=== PATIENT | female | born 1935 | race Caucasian/White ===

== ENCOUNTER 2018-10-15 13:07 | Outpatient (CLI) | payer MEDICARE, BC | END 2018-10-15 13:08 | disposition home or self-care (01) | LOC: BICMAMMO 13:07 | PROVIDERS: ATTEND Internal Medicine | DX: Z12.31 Encounter for screening mammogram for malignant neoplasm of breast (principal) | CPT/HCPCS: 77063; 77067 ==

== ENCOUNTER 2020-04-13 14:43 | Outpatient (CLI) | payer MEDICARE, BC ==
--- NOTE | 2020-04-13 15:02 | RAD ---
RADIOGRAPH CHEST 2 VIEWS: DATE: 04/13/2020 HISTORY: 84-year-old female with essential primary hypertension presents with cough. COMPARISON: 03/25/2014 FINDINGS: There is no airspace density, pulmonary edema, pleural effusion, pneumothorax, or cardiomegaly. There are several calcified pulmonary granulomata in the left upper lobe. There has been no significant interval change. IMPRESSION: No active cardiopulmonary disease.
== END 2020-04-13 14:44 | disposition home or self-care (01) ==
LOC: BICRAD 14:43
PROVIDERS: ATTEND Internal Medicine
DX: R05 Cough (principal); I10 Essential (primary) hypertension
CPT/HCPCS: 71046

== ENCOUNTER 2021-05-12 09:17 | Outpatient (CLI) | payer MEDICARE | END 2021-05-12 09:18 | disposition home or self-care (01) | LOC: BICMAMMO 09:17 | PROVIDERS: ATTEND Internal Medicine | DX: N63.0 Unspecified lump in unspecified breast (principal); M80.00XA Age-related osteoporosis with current pathological fracture, unspecified site, initial encounter for fracture | CPT/HCPCS: 77066; 77080; G0279 ==

== ENCOUNTER 2021-05-12 10:35 | Outpatient (CLI) | payer MEDICARE ==
[~2021-05-12 10:35] MED LIST: Iopamidol-370 76% 500 ML 1 ML ONE
[2021-05-12 10:50] LABS: Estimated GFR-MDRD - POC Greater than 90
== END 2021-05-12 10:36 | disposition home or self-care (01) ==
LOC: BICCT 10:35
PROVIDERS: ATTEND Internal Medicine
DX: M79.89 Other specified soft tissue disorders (principal); N63.0 Unspecified lump in unspecified breast
CPT/HCPCS: 71260; 82565

== ENCOUNTER 2021-05-19 13:26 | Outpatient (CLI) | payer MEDICARE | END 2021-05-19 13:27 | disposition home or self-care (01) | LOC: ULT 13:26 | PROVIDERS: ATTEND Internal Medicine | DX: I87.1 Compression of vein (principal) ==

== ENCOUNTER 2021-10-16 12:09 | Emergency (ER) | payer MEDICARE ==
[2021-10-16] MEDS ORDERED: HYDROcodone/Acetaminophen 5/325 mg Tablet ONE (13:26)
[2021-10-16] MEDS ORDERED: Diazepam 5 MG TAB ONE (15:12)
== END 2021-10-16 17:00 | disposition home or self-care (01) ==
LOC: ERS 12:09
DX: S32.502A Unspecified fracture of left pubis, initial encounter for closed fracture (principal); S32.10XA Unspecified fracture of sacrum, initial encounter for closed fracture; I10 Essential (primary) hypertension; K21.9 Gastro-esophageal reflux disease without esophagitis; Z79.899 Other long term (current) drug therapy; W18.30XA Fall on same level, unspecified, initial encounter
CPT/HCPCS: 72192

== ENCOUNTER 2021-10-20 12:28 | Inpatient (IN) | payer MEDICARE ==
[2021-10-20 15:42] LABS: #Eosinphils 0.1 thou/uL (0.0-0.7); #Lymphocytes 1.5 thou/uL (1.20-3.40); #Monocytes 0.9 thou/uL (0.11-0.59); #Neutrophils 6.4 thou/uL (1.40-6.50); %Basophils 0.4 % (0.0-1.0); %Lymphocytes 16.4 % (21.0-51.0); %Neutrophils 72.2 % (42.0-75.0); Hemoglobin 14.6 g/dL (12.0-16.0); Mean Corpuscular HGB CONC 32.3 g/dL (32.0-36.0); Mean Corpuscular Hemoglobin 29.7 pg (27.0-31.0); Mean Corpuscular Volume 91.9 fL (78.0-98.0); Platelet Count 500 thou/uL (130-400); RBC Distribution Width 12.7 % (11.5-14.5); Red Blood Cell (RBC) Count 4.92 mill/uL (4.20-5.40); White Blood Cell (WBC) Count 8.9 thou/uL (4.8-10.8)
[2021-10-20 16:04] LABS: ALT (SGPT) 14 U/L (8-55); AST (SGOT) 21 U/L (5-34); Albumin 3.8 g/dL (3.4-4.8); Alkaline Phosphatase 140 U/L (40-110); Anion Gap 15 mmol/L (10-20); BUN (Urea Nitrogen) 10 mg/dL (9.8-20.1); Bilirubin, Total 0.7 mg/dL (0.2-1.2); Calc. Creatinine Clearance 0 mL/min (70-130); Carbon Dioxide 29 mmol/L (23-31); Chloride 89 mmol/L (98-107); Globulin 2.9 g/dL (2.4-3.5); Glucose 98 mg/dL (83-110); Potassium 4.6 mmol/L (3.5-5.1); Protein, Total 6.7 g/dL (5.8-8.1); Sodium 128 mmol/L (136-145)
[2021-10-20] MEDS ORDERED: Ondansetron PF 4 MG/2 ML Vial IVP PRN (16:09)
[2021-10-20] MEDS ORDERED: Bisacodyl 10 MG SUPP PR PRN (16:09)
[2021-10-20] MEDS ORDERED: Guaifenesin DM 100-10/5 ML UDCUP PO PRN (16:09)
[2021-10-20] MEDS ORDERED: Calcium Carbonate 500 MG ChewTAB PO PRN (16:09)
[2021-10-20] MEDS ORDERED: Morphine 4 MG/ML VIAL ONE (16:10)
[2021-10-20] MEDS ORDERED: Ondansetron PF 4 MG/2 ML Vial ONE (16:10)
[2021-10-20] MEDS ORDERED: Morphine 4 MG/ML VIAL SLOW IVP PRN (17:48)
[2021-10-20 18:16] VITALS: BMI 22.7
[2021-10-20] MEDS: Metoprolol Tartrate 25 MG TAB PO SCH (19:55)
[2021-10-20] MEDS: Senokot S 8.6-50 MG TAB PO SCH (19:55)
[2021-10-20] MEDS: traMADol HCl 50 MG TAB PO SCH (19:56)
[2021-10-20] MEDS: Lidocaine 5% Patch TD SCH (20:00)
[2021-10-21 05:20] LABS: #Basophils 0.1 thou/uL (0.0-0.2); #Eosinphils 0.1 thou/uL (0.0-0.7); #Lymphocytes 1.2 thou/uL (1.20-3.40); #Monocytes 0.8 thou/uL (0.11-0.59); #Neutrophils 5.7 thou/uL (1.40-6.50); %Basophils 0.8 % (0.0-1.0); %Eosinophils 1.5 % (0.0-10.0); %Lymphocytes 15.4 % (21.0-51.0); %Monocytes 10.2 % (0.0-10.0); %Neutrophils 72.1 % (42.0-75.0); Mean Corpuscular HGB CONC 32.5 g/dL (32.0-36.0); Mean Corpuscular Hemoglobin 29.7 pg (27.0-31.0); Mean Corpuscular Volume 91.5 fL (78.0-98.0); Mean Platelet Volume 5.9 fL (7.4-10.4); Platelet Count 485 thou/uL (130-400); RBC Distribution Width 12.7 % (11.5-14.5); Red Blood Cell (RBC) Count 5.04 mill/uL (4.20-5.40)
[2021-10-21 05:40] LABS: Anion Gap 12 mmol/L (10-20); BUN (Urea Nitrogen) 9 mg/dL (9.8-20.1); Calc. Creatinine Clearance 72 mL/min (70-130); Calcium 9.7 mg/dL (7.8-10.44); Carbon Dioxide 30 mmol/L (23-31); Chloride 90 mmol/L (98-107); Glucose 96 mg/dL (83-110); Potassium 3.7 mmol/L (3.5-5.1); Sodium 128 mmol/L (136-145)
[2021-10-21] MEDS: HYDROcodone/Acetaminophen 5/325 mg Tablet PO PRN ×2 (05:56→13:00)
[2021-10-21] MEDS ORDERED: hydrALAZINE 20 MG/ML VIAL SLOW IVP PRN (06:36)
[2021-10-21] MEDS ORDERED: Sodium Chloride 0.9% 1,000 ML IV SCH (07:00)
[2021-10-21] MEDS ORDERED: Amlodipine 5 MG TAB PO SCH (09:00)
[2021-10-21] MEDS: Acetaminophen 325 MG TAB PO PRN ×2 (09:10→20:29)
[2021-10-21] MEDS: Senokot S 8.6-50 MG TAB PO SCH ×2 (09:12→20:35)
[2021-10-21] MEDS: traMADol HCl 50 MG TAB PO SCH ×3 (09:13→20:25)
[2021-10-21] MEDS: Metoprolol Tartrate 25 MG TAB PO SCH ×2 (09:13→20:27)
[2021-10-21 11:13] LABS: SARS-CoV-2 PCR by NAA Not Detected (NotDetected)
[2021-10-21] MEDS: Enoxaparin Sodium 40 MG/0.4 ML SYRINGE SC SCH (13:01)
[2021-10-21] MEDS: Transdermal Patch Removal TOP SCH (20:35)
[2021-10-22 08:03] LABS: #Eosinphils 0.1 thou/uL (0.0-0.7); #Monocytes 0.6 thou/uL (0.11-0.59); #Neutrophils 5.5 thou/uL (1.40-6.50); %Basophils 0.6 % (0.0-1.0); %Eosinophils 1.4 % (0.0-10.0); %Lymphocytes 14.2 % (21.0-51.0); %Monocytes 8.1 % (0.0-10.0); %Neutrophils 75.8 % (42.0-75.0); Hemoglobin 15.6 g/dL (12.0-16.0); Mean Corpuscular Hemoglobin 29.3 pg (27.0-31.0); Mean Corpuscular Volume 91.8 fL (78.0-98.0); Mean Platelet Volume 6.7 fL (7.4-10.4); Platelet Count 489 thou/uL (130-400); RBC Distribution Width 12.7 % (11.5-14.5); Red Blood Cell (RBC) Count 5.32 mill/uL (4.20-5.40); White Blood Cell (WBC) Count 7.3 thou/uL (4.8-10.8)
[2021-10-22 08:23] LABS: ALT (SGPT) 13 U/L (8-55); AST (SGOT) 19 U/L (5-34); Albumin 3.6 g/dL (3.4-4.8); Alkaline Phosphatase 134 U/L (40-110); Anion Gap 13 mmol/L (10-20); BUN (Urea Nitrogen) 7 mg/dL (9.8-20.1); Bilirubin, Total 0.6 mg/dL (0.2-1.2); Calc. Creatinine Clearance 71 mL/min (70-130); Calcium 9.4 mg/dL (7.8-10.44); Carbon Dioxide 28 mmol/L (23-31); Chloride 92 mmol/L (98-107); Globulin 3.3 g/dL (2.4-3.5); Glucose 95 mg/dL (83-110); Potassium 3.5 mmol/L (3.5-5.1); Protein, Total 6.9 g/dL (5.8-8.1); Sodium 129 mmol/L (136-145)
[2021-10-22] MEDS: traMADol HCl 50 MG TAB PO SCH ×3 (08:54→20:47)
[2021-10-22] MEDS: Enoxaparin Sodium 40 MG/0.4 ML SYRINGE SC SCH (08:54)
[2021-10-22] MEDS: Senokot S 8.6-50 MG TAB PO SCH ×2 (08:54→20:47)
[2021-10-22] MEDS: Amlodipine 10 MG TAB PO SCH (08:54)
[2021-10-22] MEDS: Metoprolol Tartrate 25 MG TAB PO SCH ×2 (08:57→20:47)
[2021-10-22] MEDS: Lidocaine 5% Patch TD SCH (15:50)
[2021-10-23] MEDS: Transdermal Patch Removal TOP SCH ×2 (00:18→21:12)
[2021-10-23] MEDS: HYDROcodone/Acetaminophen 5/325 mg Tablet PO PRN (04:08)
[2021-10-23 06:09] LABS: Anion Gap 11 mmol/L (10-20); BUN (Urea Nitrogen) 7 mg/dL (9.8-20.1); Calc. Creatinine Clearance 67 mL/min (70-130); Calcium 9.6 mg/dL (7.8-10.44); Carbon Dioxide 29 mmol/L (23-31); Chloride 92 mmol/L (98-107); Glucose 105 mg/dL (83-110); Potassium 3.5 mmol/L (3.5-5.1); Sodium 128 mmol/L (136-145)
[2021-10-23] MEDS: traMADol HCl 50 MG TAB PO SCH ×3 (09:36→21:10)
[2021-10-23] MEDS: Senokot S 8.6-50 MG TAB PO SCH ×2 (09:36→21:11)
[2021-10-23] MEDS: Amlodipine 10 MG TAB PO SCH (09:37)
[2021-10-23] MEDS: Metoprolol Tartrate 25 MG TAB PO SCH ×2 (09:37→21:11)
[2021-10-23] MEDS: Lidocaine 5% Patch TD SCH (09:38)
[2021-10-23] MEDS: Enoxaparin Sodium 40 MG/0.4 ML SYRINGE SC SCH (09:38)
[2021-10-24] MEDS: HYDROcodone/Acetaminophen 5/325 mg Tablet PO PRN (04:21)
[2021-10-24] MEDS: Amlodipine 10 MG TAB PO SCH (09:14)
[2021-10-24] MEDS: Senokot S 8.6-50 MG TAB PO SCH ×2 (09:14→20:40)
[2021-10-24] MEDS: Enoxaparin Sodium 40 MG/0.4 ML SYRINGE SC SCH (09:14)
[2021-10-24] MEDS: Lidocaine 5% Patch TD SCH (09:15)
[2021-10-24] MEDS: Metoprolol Tartrate 25 MG TAB PO SCH ×2 (09:15→20:40)
[2021-10-24] MEDS: traMADol HCl 50 MG TAB PO SCH ×3 (09:15→20:40)
[2021-10-24] MEDS: Transdermal Patch Removal TOP SCH (20:41)
[2021-10-25] MEDS: HYDROcodone/Acetaminophen 5/325 mg Tablet PO PRN (01:26)
[2021-10-25] MEDS: Amlodipine 10 MG TAB PO SCH (09:29)
[2021-10-25] MEDS: Metoprolol Tartrate 25 MG TAB PO SCH ×2 (09:29→20:55)
[2021-10-25] MEDS: Enoxaparin Sodium 40 MG/0.4 ML SYRINGE SC SCH (09:30)
[2021-10-25] MEDS: Senokot S 8.6-50 MG TAB PO SCH ×2 (09:30→20:56)
[2021-10-25] MEDS: traMADol HCl 50 MG TAB PO SCH ×3 (09:31→22:25)
[2021-10-25] MEDS: Lidocaine 5% Patch TD SCH (09:42)
[2021-10-25] MEDS: Transdermal Patch Removal TOP SCH (20:56)
[2021-10-26] MEDS: Enoxaparin Sodium 40 MG/0.4 ML SYRINGE SC SCH (09:57)
[2021-10-26] MEDS: Amlodipine 10 MG TAB PO SCH (09:57)
[2021-10-26] MEDS: Metoprolol Tartrate 25 MG TAB PO SCH ×2 (09:57→20:48)
[2021-10-26] MEDS: traMADol HCl 50 MG TAB PO SCH ×3 (09:58→20:48)
[2021-10-26] MEDS: Senokot S 8.6-50 MG TAB PO SCH ×2 (09:59→20:48)
[2021-10-26] MEDS: Lidocaine 5% Patch TD SCH (13:19)
[2021-10-26] MEDS: Acetaminophen 325 MG TAB PO PRN (13:27)
[2021-10-26] MEDS: Transdermal Patch Removal TOP SCH (20:49)
[2021-10-27] MEDS: HYDROcodone/Acetaminophen 5/325 mg Tablet PO PRN (02:35)
[2021-10-27 07:13] LABS: ALT (SGPT) 25 U/L (8-55); AST (SGOT) 23 U/L (5-34); Albumin 3.6 g/dL (3.4-4.8); Alkaline Phosphatase 149 U/L (40-110); Anion Gap 9 mmol/L (10-20); BUN (Urea Nitrogen) 6 mg/dL (9.8-20.1); Bilirubin, Total 0.5 mg/dL (0.2-1.2); Calc. Creatinine Clearance 71 mL/min (70-130); Calcium 9.9 mg/dL (7.8-10.44); Carbon Dioxide 32 mmol/L (23-31); Chloride 93 mmol/L (98-107); Globulin 3.2 g/dL (2.4-3.5); Glucose 106 mg/dL (83-110); Potassium 3.3 mmol/L (3.5-5.1); Protein, Total 6.8 g/dL (5.8-8.1); Sodium 131 mmol/L (136-145)
[2021-10-27] MEDS: Amlodipine 10 MG TAB PO SCH (08:58)
[2021-10-27] MEDS: Enoxaparin Sodium 40 MG/0.4 ML SYRINGE SC SCH (08:58)
[2021-10-27] MEDS: Senokot S 8.6-50 MG TAB PO SCH (08:59)
[2021-10-27] MEDS: Metoprolol Tartrate 25 MG TAB PO SCH (08:59)
[2021-10-27] MEDS: traMADol HCl 50 MG TAB PO SCH ×2 (08:59→15:03)
[2021-10-27] MEDS: Lidocaine 5% Patch TD SCH (09:00)
[2021-10-27] MEDS ORDERED: Potassium Chloride 20 MEQ TAB PO SCH (13:53)
[2021-10-27 16:19] VITALS: BP 162/76; TEMP 98
== END 2021-10-27 19:05 | DRG 536 ==
LOC: ERS 12:28 → SURG B 15:37 → OBSVTOIN 10-21 13:46
PROVIDERS: ADMIT Internal Medicine; ATTEND Internal Medicine
DX: S32.9XXA Fracture of unspecified parts of lumbosacral spine and pelvis, initial encounter for closed fracture (principal); Z20.822 Contact with and (suspected) exposure to COVID-19; Z66 Do not resuscitate; E87.1 Hypo-osmolality and hyponatremia; X58.XXXA Exposure to other specified factors, initial encounter; I10 Essential (primary) hypertension; K21.9 Gastro-esophageal reflux disease without esophagitis; M19.90 Unspecified osteoarthritis, unspecified site; Z90.49 Acquired absence of other specified parts of digestive tract; Z79.82 Long term (current) use of aspirin; Z79.899 Other long term (current) drug therapy
CPT/HCPCS: 36415; 71045; 80048; 80053; 83880; 85025; 96372; 96374; 96375; G0378; J1650; J2270; J2405; J7050; U0003; U0005

== ENCOUNTER 2022-06-26 08:57 | Outpatient (CLI) | payer MEDICARE | END 2022-06-26 08:58 | disposition home or self-care (01) | LOC: LABBT 08:57 | PROVIDERS: ATTEND Orthopaedic Surgery | DX: Z20.822 Contact with and (suspected) exposure to COVID-19 (principal) | CPT/HCPCS: 87811 ==

== ENCOUNTER 2022-06-26 09:00 | Inpatient (IN) | payer MEDICARE ==
[2022-06-28] MEDS ORDERED: Sodium Chloride 0.9% 100 ML ONE ×3 (06:04→15:12)
[2022-06-28] MEDS ORDERED: Tranexamic Acid 1,000 MG/10 ML VIAL ONE (06:04)
[2022-06-28] MEDS ORDERED: Vancomycin (BATCH) 1.5 GRAM/300 ML BAG ONE (06:04)
[2022-06-28] MEDS ORDERED: Vancomycin 1 GM/200 ML BAG ONE (06:15)
[2022-06-28] MEDS ORDERED: fentaNYL Citrate/PF 100 MCG/2 ML SYRINGE ONE ×2 (06:22→07:20)
[2022-06-28] MEDS ORDERED: Midazolam HCl 2 mg/2 ml Vial ONE (06:23)
[2022-06-28] MEDS ORDERED: Fentanyl 100 MCG/2 ML VIAL ONE ×2 (06:42→10:12)
[2022-06-28] MEDS ORDERED: Lidocaine 1% PF 5 ML VIAL ONE (06:45)
[2022-06-28] MEDS ORDERED: PROPOFOL 200 MG/20 ML VIAL ONE (06:45)
[2022-06-28] MEDS ORDERED: Rocuronium Bromide 10 MG/ML (10ML VIAL) ONE (06:45)
[2022-06-28] MEDS ORDERED: Dexamethasone 20 MG/5 ML VIAL ONE (06:45)
[2022-06-28] MEDS ORDERED: Bupivacaine HCl 0.5%/Epinephrine 1:200,000/PF 30 ml Vial ONE (06:45)
[2022-06-28] MEDS ORDERED: Ondansetron PF 4 MG/2 ML Vial ONE (06:45)
[2022-06-28] MEDS ORDERED: Ondansetron PF 4 MG/2 ML Vial IVP PRN ×2 (06:51→08:00)
[2022-06-28] MEDS ORDERED: Ondansetron ODT 4 MG TAB PO PRN (06:51)
[2022-06-28] MEDS ORDERED: Acetaminophen 325 MG TAB PO PRN (06:51)
[2022-06-28] MEDS ORDERED: Milk Of Magnesia 30 ML UDCUP PO PRN (06:51)
[2022-06-28] MEDS ORDERED: Methocarbamol 500 MG TAB PO PRN (06:51)
[2022-06-28] MEDS ORDERED: Zolpidem Tartrate 5 MG TAB PO PRN ×2 (06:51→08:00)
[2022-06-28] MEDS ORDERED: diphenhydrAMINE 50 MG CAP PO PRN (06:51)
[2022-06-28] MEDS ORDERED: Methocarbamol 1 GM/10 ML VIAL SLOW IVP PRN (06:51)
[2022-06-28] MEDS ORDERED: Bisacodyl 10 MG SUPP PR PRN (06:51)
[2022-06-28] MEDS ORDERED: CEFAZOLIN 2 GM VIAL ONE ×2 (06:54→15:11)
[2022-06-28] MEDS ORDERED: ceFAZolin 2 GM/Dextrose 50 ML 2 GM in Premix Bag 1 BAG IVPB SCH (07:00)
[2022-06-28] MEDS ORDERED: Famotidine/PF 20 mg/2ml Vial ONE (07:20)
[2022-06-28] MEDS ORDERED: Fentanyl 100 MCG/2 ML VIAL IV PRN (07:58)
[2022-06-28] MEDS ORDERED: Ketorolac Tromethamine 30 MG/ML VIAL IVP PRN (08:00)
[2022-06-28] MEDS ORDERED: HYDROcodone/Acetaminophen 5/325 mg Tablet PO PRN (08:00)
[2022-06-28] MEDS ORDERED: Ropivacaine 0.2% 550 ML 550 ML NERVE BLCK SCH (08:00)
[2022-06-28] MEDS ORDERED: traMADol HCl 50 MG TAB PO PRN ×2 (08:00)
[2022-06-28] MEDS ORDERED: Promethazine HCl 25 MG/ML VIAL IM PRN (08:00)
[2022-06-28] MEDS ORDERED: Promethazine HCl 25 MG/ML VIAL IVPB PRN (08:39)
[2022-06-28] MEDS ORDERED: PACU-Morphine 4MG/ML VIAL SLOW IVP PRN (08:39)
[2022-06-28] MEDS ORDERED: SUGAMMADEX SODIUM 200 MG/2 ML VIAL ONE (08:49)
[2022-06-28] MEDS ORDERED: Apixaban 2.5 MG TAB PO SCH (09:00)
[2022-06-28] MEDS ORDERED: Promethazine HCl 25 MG/ML VIAL ONE (10:52)
[2022-06-28] MEDS ORDERED: Ketorolac Tromethamine 30 MG/ML VIAL ONE (12:27)
[2022-06-28] MEDS ORDERED: HYDROcodone/Acetaminophen 5/325 mg Tablet ONE (15:12)
[2022-06-28] MEDS ORDERED: Azelastine 137 MCG/Spray 30 ML NS PRN (16:18)
[2022-06-28] MEDS ORDERED: Furosemide 40 MG TAB PO PRN (16:24)
[2022-06-28] MEDS ORDERED: Potassium Chloride 20 MEQ TAB PO PRN (16:27)
[2022-06-28] MEDS: Calcium Carbonate 500 MG TAB PO SCH (17:35)
[2022-06-28] MEDS: CEFAZOLIN 2 GM in Sodium Chloride 0.9% 100 ML IVPB SCH ×2 (17:35→21:06)
[2022-06-28] MEDS: Famotidine 20 MG TAB PO SCH ×3 (17:41→21:08)
[2022-06-28] MEDS ORDERED: Vancomycin 1 GM in Premix Bag 1 BAG IVPB SCH (18:00)
[2022-06-28] MEDS: Dextrose 5 %-0.45 % NaCl 1,000 ML IV SCH ×2 (20:29→21:32)
[2022-06-29] MEDS: HYDROcodone/Acetaminophen 5/325 mg Tablet PO PRN ×4 (05:13→20:36)
[2022-06-29] MEDS: Cholecalciferol 1,000 UNITS (25 MCG) TAB PO SCH (09:02)
[2022-06-29] MEDS: Calcium Carbonate 500 MG TAB PO SCH ×2 (09:02→18:55)
[2022-06-29] MEDS: Hydrochlorothiazide 25 MG TAB PO SCH (09:04)
[2022-06-29] MEDS: Famotidine 20 MG TAB PO SCH ×3 (09:04→20:38)
[2022-06-29] MEDS: Apixaban 2.5 MG TAB PO SCH ×2 (09:04→20:36)
[2022-06-29] MEDS: Amlodipine 5 MG TAB PO SCH (09:04)
[2022-06-29 11:16] VITALS: BMI 22.5
[2022-06-29] MEDS: Loratadine 10 MG TAB PO SCH (12:31)
[2022-06-29] MEDS: Dextrose 5 %-0.45 % NaCl 1,000 ML IV SCH (17:00)
[2022-06-30] MEDS: HYDROcodone/Acetaminophen 5/325 mg Tablet PO PRN (03:05)
[2022-06-30] MEDS: Dextrose 5 %-0.45 % NaCl 1,000 ML IV SCH (05:33)
[2022-06-30 08:42] VITALS: BP 112/71; TEMP 98.3
[2022-06-30] MEDS: Cholecalciferol 1,000 UNITS (25 MCG) TAB PO SCH (09:11)
[2022-06-30] MEDS: Loratadine 10 MG TAB PO SCH (09:11)
[2022-06-30] MEDS: Apixaban 2.5 MG TAB PO SCH (09:11)
[2022-06-30] MEDS: Amlodipine 5 MG TAB PO SCH (09:11)
[2022-06-30] MEDS: Calcium Carbonate 500 MG TAB PO SCH (09:11)
[2022-06-30] MEDS: Hydrochlorothiazide 25 MG TAB PO SCH (09:11)
[2022-06-30] MEDS: Famotidine 20 MG TAB PO SCH (09:11)
== END 2022-06-30 12:25 | disposition home or self-care (01) | DRG 483 ==
LOC: SURG A 06-28 05:41
PROVIDERS: ADMIT Orthopaedic Surgery; ATTEND Orthopaedic Surgery
PROC: 0RRK00Z Replacement of Left Shoulder Joint with Reverse Ball and Socket Synthetic Substitute, Open Approach (ICD-10-PCS; principal; 2022-06-28)
PROC: 3E0T3BZ Introduction of Anesthetic Agent into Peripheral Nerves and Plexi, Percutaneous Approach (ICD-10-PCS; 2022-06-28)
DX: M19.012 Primary osteoarthritis, left shoulder (principal); Z20.822 Contact with and (suspected) exposure to COVID-19; M75.112 Incomplete rotator cuff tear or rupture of left shoulder, not specified as traumatic; I10 Essential (primary) hypertension; Z86.718 Personal history of other venous thrombosis and embolism; Z79.01 Long term (current) use of anticoagulants; Z90.49 Acquired absence of other specified parts of digestive tract; Z90.89 Acquired absence of other organs; Z98.51 Tubal ligation status
CPT/HCPCS: 87811; A4306; C1713; C1776; J0690; J1100; J1885; J2250; J2405; J2550; J2704; J2795; J3010; J3370; J3490; S0028

== ENCOUNTER 2022-09-18 09:19 | Outpatient (CLI) | payer MEDICARE | END 2022-09-18 09:20 | disposition home or self-care (01) | LOC: MRI 09:19 | PROVIDERS: ATTEND Internal Medicine | DX: R41.3 Other amnesia (principal) | CPT/HCPCS: 70551 ==

== ENCOUNTER 2024-03-28 14:50 | Inpatient (IN) | payer MEDICARE ==
[~2024-03-28 14:50] MED LIST changes: -Iopamidol-370 76% 500 ML 1 ML ONE; +Iopamidol-370 76% 500 ML MDV (1 ML CHARGE) ONE
[2024-03-28 15:19] LABS: %Basophils 1.1 % (0.0-1.0); %Eosinophils 3.5 % (0.0-10.0); %Lymphocytes 9.3 % (21.0-51.0); %Monocytes 6.9 % (0.0-10.0); %Neutrophils 77.7 % (42.0-75.0); Hematocrit 44.3 % (36.0-47.0); Hemoglobin 14.9 g/dL (12.0-16.0); Mean Corpuscular HGB CONC 33.6 g/dL (32.0-36.0); Mean Corpuscular Hemoglobin 30.8 pg (27.0-31.0); Mean Corpuscular Volume 91.7 fL (78.0-98.0); Mean Platelet Volume 9.3 fL (7.4-10.4); Platelet Count 709 10x3/uL (130-400); RBC Distribution Width 15.6 % (11.5-14.5); Red Blood Cell (RBC) Count 4.83 mill/uL (4.20-5.40)
[2024-03-28 15:37] LABS: ALT (SGPT) 68 U/L (8-55); AST (SGOT) 38 U/L (5-34); Albumin 3.3 g/dL (3.4-4.8); Alkaline Phosphatase 280 U/L (40-110); Anion Gap 15 mmol/L (10-20); BUN (Urea Nitrogen) 8 mg/dL (9.8-20.1); Bilirubin, Total 0.9 mg/dL (0.2-1.2); Calc. Creatinine Clearance 0 mL/min (70-130); Calcium 9.2 mg/dL (7.8-10.44); Carbon Dioxide 28 mmol/L (23-31); Chloride 96 mmol/L (98-107); Estimated GFR 77; Globulin 3.6 g/dL (2.4-3.5); Glucose 109 mg/dL (83-110); Lipase 36 U/L (8-78); Potassium 4.5 mmol/L (3.5-5.1); Protein, Total 6.9 g/dL (5.8-8.1); Sodium 134 mmol/L (136-145)
[2024-03-28 15:41] LABS: Troponin I Less than 0.010 ng/mL (< 0.028)
[2024-03-28] MEDS ORDERED: Acetaminophen 650 MG Suppository PR PRN (17:57)
[2024-03-28] MEDS ORDERED: Senokot S 8.6-50 MG TAB PO PRN (17:57)
[2024-03-28] MEDS ORDERED: Ondansetron ODT 4 MG TAB PO PRN (17:57)
[2024-03-28] MEDS ORDERED: Acetaminophen 325 MG TAB PO PRN (17:57)
[2024-03-28] MEDS ORDERED: Ondansetron PF 4 MG/2 ML Vial IVP PRN (17:57)
[2024-03-28] MEDS ORDERED: Melatonin 3 MG TAB PO PRN (18:51)
[2024-03-28 18:52] LABS: Magnesium 2.3 mg/dL (1.6-2.6)
[2024-03-28 18:58] LABS: Troponin I Less than 0.010 ng/mL (< 0.028)
[2024-03-28] MEDS ORDERED: Furosemide 20 MG (2 mL) VIAL SLOW IVP SCH (19:00)
[2024-03-28] MEDS: Apixaban 5 MG TAB PO SCH (20:48)
[2024-03-28] MEDS: Calcium Carbonate 500 MG TAB PO SCH (20:48)
[2024-03-28] MEDS: Furosemide 40 MG (4 mL) VIAL SLOW IVP SCH (20:48)
[2024-03-28 21:07] VITALS: BMI 24.2
[2024-03-28 22:13] LABS: Troponin I Less than 0.010 ng/mL (< 0.028)
[2024-03-29 04:23] LABS: #Basophils 0.09 10x3/uL (0.0-0.2); %Eosinophils 5.3 % (0.0-10.0); %Lymphocytes 9.7 % (21.0-51.0); %Monocytes 8.3 % (0.0-10.0); %Neutrophils 74.7 % (42.0-75.0); Hematocrit 38.8 % (36.0-47.0); Mean Corpuscular HGB CONC 33.5 g/dL (32.0-36.0); Mean Corpuscular Hemoglobin 31.1 pg (27.0-31.0); Mean Corpuscular Volume 92.8 fL (78.0-98.0); Mean Platelet Volume 9.4 fL (7.4-10.4); Platelet Count 605 10x3/uL (130-400); RBC Distribution Width 15.8 % (11.5-14.5); Red Blood Cell (RBC) Count 4.18 mill/uL (4.20-5.40)
[2024-03-29 04:56] LABS: ALT (SGPT) 51 U/L (8-55); AST (SGOT) 28 U/L (5-34); Albumin 2.9 g/dL (3.4-4.8); Alkaline Phosphatase 226 U/L (40-110); Anion Gap 14 mmol/L (10-20); BUN (Urea Nitrogen) 6 mg/dL (9.8-20.1); Bilirubin, Total 0.7 mg/dL (0.2-1.2); Calc. Creatinine Clearance 65 mL/min (70-130); Calcium 8.9 mg/dL (7.8-10.44); Carbon Dioxide 32 mmol/L (23-31); Chloride 95 mmol/L (98-107); Estimated GFR 85; Glucose 103 mg/dL (83-110); Magnesium 2.2 mg/dL (1.6-2.6); Potassium 3.6 mmol/L (3.5-5.1); Protein, Total 5.9 g/dL (5.8-8.1); Sodium 137 mmol/L (136-145)
[2024-03-29] MEDS: Furosemide 20 MG (2 mL) VIAL SLOW IVP SCH (06:14)
[2024-03-29] MEDS: Pantoprazole DR 40 MG TAB PO SCH (08:52)
[2024-03-29] MEDS: dilTIAZem CD 240 MG CAP PO SCH (08:52)
[2024-03-29] MEDS: Loratadine 10 MG TAB PO SCH (08:52)
[2024-03-29] MEDS ORDERED: Digoxin 0.125 MG TAB PO SCH (09:00)
[2024-03-29] MEDS: Spironolactone 25 MG TAB PO SCH (15:56)
[2024-03-29] MEDS: Sodium Ferric Gluconate 250 MG in Sodium Chloride 0.9% 250 ML 250 ML IVPB SCH (16:03)
[2024-03-30 05:15] LABS: #Basophils 0.13 10x3/uL (0.0-0.2); %Basophils 1.3 % (0.0-1.0); %Eosinophils 5.3 % (0.0-10.0); %Lymphocytes 9.2 % (21.0-51.0); %Monocytes 7.1 % (0.0-10.0); %Neutrophils 75.7 % (42.0-75.0); Hematocrit 41.6 % (36.0-47.0); Hemoglobin 13.7 g/dL (12.0-16.0); Mean Corpuscular HGB CONC 32.9 g/dL (32.0-36.0); Mean Corpuscular Hemoglobin 30.2 pg (27.0-31.0); Mean Corpuscular Volume 91.8 fL (78.0-98.0); Mean Platelet Volume 9.6 fL (7.4-10.4); Platelet Count 665 10x3/uL (130-400); RBC Distribution Width 15.8 % (11.5-14.5); Red Blood Cell (RBC) Count 4.53 mill/uL (4.20-5.40)
[2024-03-30 05:45] LABS: Anion Gap 14 mmol/L (10-20); BUN (Urea Nitrogen) 7 mg/dL (9.8-20.1); Calc. Creatinine Clearance 62 mL/min (70-130); Calcium 9.7 mg/dL (7.8-10.44); Carbon Dioxide 31 mmol/L (23-31); Chloride 96 mmol/L (98-107); Estimated GFR 84; Glucose 121 mg/dL (83-110); Magnesium 2.1 mg/dL (1.6-2.6); Sodium 137 mmol/L (136-145)
[2024-03-30] MEDS: Empagliflozin 10 MG TAB PO SCH (08:53)
[2024-03-30] MEDS: Spironolactone 25 MG TAB PO SCH (08:53)
[2024-03-30] MEDS: dilTIAZem CD 180 MG CAP PO SCH (08:54)
[2024-03-31 05:23] LABS: Anion Gap 14 mmol/L (10-20); BUN (Urea Nitrogen) 7 mg/dL (9.8-20.1); Calc. Creatinine Clearance 58 mL/min (70-130); Calcium 9.3 mg/dL (7.8-10.44); Carbon Dioxide 33 mmol/L (23-31); Chloride 95 mmol/L (98-107); Estimated GFR 81; Glucose 89 mg/dL (83-110); Potassium 3.4 mmol/L (3.5-5.1); Sodium 139 mmol/L (136-145)
[2024-03-31] MEDS: Potassium Chloride 20 MEQ TAB PO SCH (10:19)
[2024-03-31] MEDS ORDERED: PROPOFOL 200 MG/20 ML VIAL ONE (14:12)
[2024-03-31] MEDS ORDERED: Lidocaine 1% PF 5 ML VIAL ONE (14:12)
[2024-03-31] MEDS ORDERED: fentaNYL 50 mcg/mL 1 mL Vial ONE (14:36)
[2024-03-31 15:52] VITALS: BP 107/52; TEMP 97.5
[2024-03-31] MEDS ORDERED: Flecainide 50 MG TAB PO SCH (21:00)
[2024-04-01] MEDS ORDERED: Furosemide 20 MG TAB PO SCH (09:00)
== END 2024-03-31 17:02 | disposition home or self-care (01) | DRG 291 ==
LOC: ERS 14:50 → 2SW 18:54
PROVIDERS: ADMIT Family Medicine; ATTEND Emergency Medicine
PROC: 5A2204Z Restoration of Cardiac Rhythm, Single (ICD-10-PCS; principal; 2024-03-31)
DX: I11.0 Hypertensive heart disease with heart failure (principal); I50.33 Acute on chronic diastolic (congestive) heart failure; J96.01 Acute respiratory failure with hypoxia; I48.19 Other persistent atrial fibrillation; I31.39 Other pericardial effusion (noninflammatory); Z79.01 Long term (current) use of anticoagulants; Z79.899 Other long term (current) drug therapy; Z79.82 Long term (current) use of aspirin; K21.9 Gastro-esophageal reflux disease without esophagitis; Z90.49 Acquired absence of other specified parts of digestive tract; Z90.89 Acquired absence of other organs; Z88.8 Allergy status to other drugs, medicaments and biological substances; M19.90 Unspecified osteoarthritis, unspecified site; K81.1 Chronic cholecystitis; R74.01 Elevation of levels of liver transaminase levels
CPT/HCPCS: 36415; 71045; 71275; 80048; 80053; 83690; 83735; 83880; 84145; 84484; 85025; 92960; 93005; 93010; 93312; J1940; J2704; J2916; J3010; J7050; Q9967

== ENCOUNTER 2024-04-02 05:07 | Inpatient (IN) | payer MEDICARE ==
[2024-04-02] MEDS ORDERED: dilTIAZem 25 MG/5 ML VIAL ONE (05:22)
[2024-04-02] MEDS ORDERED: Digoxin 0.5 MG/2 ML AMP ONE (05:22)
[2024-04-02] MEDS ORDERED: Magnesium 2 GM/50 ML BAG (IN WATER) ONE (05:22)
[2024-04-02] MEDS ORDERED: dilTIAZem 125 MG/25 ML SDV ONE (05:23)
[2024-04-02 05:40] LABS: #Basophils 0.13 10x3/uL (0.0-0.2); %Basophils 1.4 % (0.0-1.0); %Eosinophils 3.6 % (0.0-10.0); %Lymphocytes 14.6 % (21.0-51.0); %Monocytes 7.5 % (0.0-10.0); %Neutrophils 71.8 % (42.0-75.0); Hematocrit 43.9 % (36.0-47.0); Hemoglobin 14.9 g/dL (12.0-16.0); Mean Corpuscular HGB CONC 33.9 g/dL (32.0-36.0); Mean Corpuscular Hemoglobin 30.7 pg (27.0-31.0); Mean Corpuscular Volume 90.3 fL (78.0-98.0); Mean Platelet Volume 9.6 fL (7.4-10.4); Platelet Count 699 10x3/uL (130-400); RBC Distribution Width 15.6 % (11.5-14.5); Red Blood Cell (RBC) Count 4.86 mill/uL (4.20-5.40)
[2024-04-02 06:51] LABS: Troponin I Less than 0.010 ng/mL (< 0.028)
[2024-04-02 06:59] LABS: ALT (SGPT) 48 U/L (8-55); AST (SGOT) 41 U/L (5-34); Albumin 3.7 g/dL (3.4-4.8); Alkaline Phosphatase 205 U/L (40-110); Anion Gap 16 mmol/L (10-20); BUN (Urea Nitrogen) 14 mg/dL (9.8-20.1); Calc. Creatinine Clearance 0 mL/min (70-130); Calcium 9.6 mg/dL (7.8-10.44); Carbon Dioxide 30 mmol/L (23-31); Chloride 96 mmol/L (98-107); Estimated GFR 74; Globulin 3.2 g/dL (2.4-3.5); Glucose 133 mg/dL (83-110); Lipase 50 U/L (8-78); Potassium 4.1 mmol/L (3.5-5.1); Protein, Total 6.9 g/dL (5.8-8.1); Sodium 138 mmol/L (136-145)
[2024-04-02 08:29] LABS: Bacteria/HPF 4+ HPF (None Seen); Bilirubin Negative (Negative); Blood, Urine Negative (Negative); CAUTI Indications for Culture Pelvic or flank pain; Glucose, Urine (Dipstick) 70 mg/dL (Negative); Ketone, Urine Negative (Negative); Leukocyte 250 Leu/uL (Negative); Nitrite Negative (Negative); Protein, Urine (Dipstick) 10 mg/dL (Neg-Trace); RBC/HPF 0-3 HPF (0-3); Specific Gravity, Urine 1.011 (1.002-1.036); Urobilinogen Normal mg/dL (Less than 2); pH, Urine 6.5 (5.0-9.0)
[2024-04-02 08:33] LABS: Clarity Cloudy (Clear)
[2024-04-02 08:34] LABS: Urine Culture Reflex Yes Yes
[2024-04-02 09:51] VITALS: BMI 20.7
[2024-04-02] MEDS ORDERED: Acetaminophen 650 MG Suppository PR PRN (10:00)
[2024-04-02] MEDS ORDERED: Acetaminophen 325 MG TAB PO PRN (10:00)
[2024-04-02] MEDS: dilTIAZem 125 MG in Sodium Chloride 0.9% 100 ML IVPB SCH (10:54)
[2024-04-02] MEDS: Flecainide 50 MG TAB PO SCH (12:16)
[2024-04-02] MEDS: Apixaban 5 MG TAB PO SCH ×2 (12:16→20:24)
[2024-04-02] MEDS: Spironolactone 25 MG TAB PO SCH (12:16)
[2024-04-02] MEDS: Furosemide 20 MG (2 mL) VIAL SLOW IVP SCH (12:16)
[2024-04-02] MEDS: Amiodarone 200 MG TAB PO SCH (16:52)
[2024-04-02] MEDS ORDERED: Flecainide 50 MG TAB PO SCH (21:00)
[2024-04-03 04:24] LABS: %Basophils 1.1 % (0.0-1.0); %Eosinophils 5.8 % (0.0-10.0); %Lymphocytes 14.5 % (21.0-51.0); %Monocytes 8.7 % (0.0-10.0); %Neutrophils 68.7 % (42.0-75.0); Hematocrit 41.6 % (36.0-47.0); Hemoglobin 13.7 g/dL (12.0-16.0); Mean Corpuscular HGB CONC 32.9 g/dL (32.0-36.0); Mean Corpuscular Hemoglobin 30.9 pg (27.0-31.0); Mean Corpuscular Volume 93.9 fL (78.0-98.0); Mean Platelet Volume 9.4 fL (7.4-10.4); Platelet Count 577 10x3/uL (130-400); RBC Distribution Width 15.4 % (11.5-14.5); Red Blood Cell (RBC) Count 4.43 mill/uL (4.20-5.40)
[2024-04-03 05:16] LABS: Anion Gap 12 mmol/L (10-20); BUN (Urea Nitrogen) 7 mg/dL (9.8-20.1); Calc. Creatinine Clearance 61 mL/min (70-130); Calcium 8.9 mg/dL (7.8-10.44); Carbon Dioxide 28 mmol/L (23-31); Chloride 99 mmol/L (98-107); Estimated GFR 86; Glucose 101 mg/dL (83-110); Potassium 3.3 mmol/L (3.5-5.1); Sodium 136 mmol/L (136-145)
[2024-04-03] MEDS ORDERED: Amiodarone 450 MG in Dextrose 5% in Water 250 ML IVPB SCH (06:30)
[2024-04-03] MEDS: Amiodarone 150 MG, Admixture Fee 1 EACH in Dextrose 5% in Water 100 ML IVPB SCH (08:44)
[2024-04-03] MEDS: Furosemide 40 MG (4 mL) VIAL SLOW IVP SCH (08:45)
[2024-04-03] MEDS: Spironolactone 25 MG TAB PO SCH (08:45)
[2024-04-03] MEDS: Pantoprazole DR 40 MG TAB PO SCH (08:46)
[2024-04-03] MEDS ORDERED: Furosemide 20 MG TAB PO SCH (09:00)
[2024-04-03] MEDS ORDERED: Non-Formulary Item 1 EACH (Omeprazole [Omeprazole] 20 MG Tablet.Dr) PO SCH (09:00)
[2024-04-03] MEDS: Potassium Chloride 20 MEQ TAB PO SCH (09:30)
[2024-04-03] MEDS: cefTRIAXone\\ROCEPHIN 1 GM in Sodium Chloride 0.9% 100 ML IVPB SCH (09:30)
[2024-04-03] MEDS: Furosemide 20 MG (2 mL) VIAL SLOW IVP SCH (17:07)
[2024-04-04 05:47] LABS: %Basophils 0.9 % (0.0-1.0); %Lymphocytes 12.5 % (21.0-51.0); %Monocytes 8.7 % (0.0-10.0); %Neutrophils 73.8 % (42.0-75.0); Hemoglobin 13.5 g/dL (12.0-16.0); Mean Corpuscular HGB CONC 32.9 g/dL (32.0-36.0); Mean Corpuscular Volume 94.3 fL (78.0-98.0); Mean Platelet Volume 10.1 fL (7.4-10.4); Platelet Count 611 10x3/uL (130-400); RBC Distribution Width 15.6 % (11.5-14.5); Red Blood Cell (RBC) Count 4.35 mill/uL (4.20-5.40)
[2024-04-04 06:03] LABS: Anion Gap 13 mmol/L (10-20); BUN (Urea Nitrogen) 9 mg/dL (9.8-20.1); Calc. Creatinine Clearance 57 mL/min (70-130); Calcium 9.3 mg/dL (7.8-10.44); Carbon Dioxide 29 mmol/L (23-31); Chloride 98 mmol/L (98-107); Estimated GFR 84; Glucose 105 mg/dL (83-110); Sodium 136 mmol/L (136-145)
[2024-04-05 04:06] LABS: #Basophils 0.14 10x3/uL (0.0-0.2); %Basophils 1.4 % (0.0-1.0); %Eosinophils 3.4 % (0.0-10.0); %Lymphocytes 13.5 % (21.0-51.0); %Monocytes 8.5 % (0.0-10.0); %Neutrophils 71.9 % (42.0-75.0); Hematocrit 40.1 % (36.0-47.0); Hemoglobin 13.1 g/dL (12.0-16.0); Mean Corpuscular HGB CONC 32.7 g/dL (32.0-36.0); Mean Corpuscular Hemoglobin 30.4 pg (27.0-31.0); Mean Platelet Volume 9.4 fL (7.4-10.4); Platelet Count 544 10x3/uL (130-400); RBC Distribution Width 15.7 % (11.5-14.5); Red Blood Cell (RBC) Count 4.31 mill/uL (4.20-5.40)
[2024-04-05 04:31] LABS: Anion Gap 15 mmol/L (10-20); BUN (Urea Nitrogen) 12 mg/dL (9.8-20.1); Calc. Creatinine Clearance 49 mL/min (70-130); Calcium 9.1 mg/dL (7.8-10.44); Carbon Dioxide 25 mmol/L (23-31); Chloride 99 mmol/L (98-107); Estimated GFR 71; Glucose 104 mg/dL (83-110); Sodium 135 mmol/L (136-145)
[2024-04-05] MEDS: Amiodarone 200 MG TAB PO SCH (08:35)
[2024-04-05] MEDS: Amlodipine 5 MG TAB PO SCH (12:43)
[2024-04-05 13:47] VITALS: TEMP 97.7
[2024-04-05 16:29] VITALS: BP 169/80
== END 2024-04-05 16:25 | disposition home or self-care (01) | DRG 308 ==
LOC: ERS 05:07 → 2SW 09:41 → OBSVTOIN 04-04 09:07
PROVIDERS: ADMIT Internal Medicine; ATTEND Hospitalist
PROC: 5A2204Z Restoration of Cardiac Rhythm, Single (ICD-10-PCS; principal; 2024-04-04)
DX: I48.19 Other persistent atrial fibrillation (principal); I50.33 Acute on chronic diastolic (congestive) heart failure; J98.11 Atelectasis; N39.0 Urinary tract infection, site not specified; I11.0 Hypertensive heart disease with heart failure; K21.9 Gastro-esophageal reflux disease without esophagitis; K81.1 Chronic cholecystitis; B96.1 Klebsiella pneumoniae [K. pneumoniae] as the cause of diseases classified elsewhere; B96.4 Proteus (mirabilis) (morganii) as the cause of diseases classified elsewhere; M19.90 Unspecified osteoarthritis, unspecified site; F10.90 Alcohol use, unspecified, uncomplicated; Z96.612 Presence of left artificial shoulder joint; Z88.8 Allergy status to other drugs, medicaments and biological substances; Z79.899 Other long term (current) drug therapy; Z90.49 Acquired absence of other specified parts of digestive tract; Z90.89 Acquired absence of other organs
CPT/HCPCS: 36415; 71045; 71046; 80048; 80053; 81001; 83690; 83735; 83880; 84484; 85025; 87077; 87086; 87186; 92960; 93005; 93010; 93306; J0696; J1160; J1940; J3475; J3490

== ENCOUNTER 2024-04-16 08:52 | Inpatient (IN) | payer MEDICARE ==
[2024-04-16] MEDS ORDERED: dilTIAZem 25 MG/5 ML VIAL ONE ×2 (09:25→10:55)
[2024-04-16] MEDS ORDERED: dilTIAZem 125 MG/25 ML SDV ONE (09:42)
[2024-04-16 10:09] LABS: #Basophils 0.07 10x3/uL (0.0-0.2); %Basophils 1.1 % (0.0-1.0); %Lymphocytes 14.2 % (21.0-51.0); %Monocytes 6.5 % (0.0-10.0); %Neutrophils 75.4 % (42.0-75.0); Hematocrit 42.2 % (36.0-47.0); Hemoglobin 14.1 g/dL (12.0-16.0); Mean Corpuscular HGB CONC 33.4 g/dL (32.0-36.0); Mean Corpuscular Hemoglobin 31.2 pg (27.0-31.0); Mean Corpuscular Volume 93.4 fL (78.0-98.0); Mean Platelet Volume 9.9 fL (7.4-10.4); Platelet Count 504 10x3/uL (130-400); RBC Distribution Width 15.8 % (11.5-14.5); Red Blood Cell (RBC) Count 4.52 mill/uL (4.20-5.40)
[2024-04-16 10:19] LABS: ALT (SGPT) 18 U/L (8-55); AST (SGOT) 21 U/L (5-34); Albumin 3.7 g/dL (3.4-4.8); Alkaline Phosphatase 102 U/L (40-110); Anion Gap 17 mmol/L (10-20); BUN (Urea Nitrogen) 11 mg/dL (9.8-20.1); Bilirubin, Total 0.9 mg/dL (0.2-1.2); Calc. Creatinine Clearance 0 mL/min (70-130); Calcium 9.7 mg/dL (7.8-10.44); Carbon Dioxide 20 mmol/L (23-31); Chloride 103 mmol/L (98-107); Estimated GFR 71; Globulin 3.4 g/dL (2.4-3.5); Glucose 138 mg/dL (83-110); Magnesium 2.2 mg/dL (1.6-2.6); Potassium 4.2 mmol/L (3.5-5.1); Protein, Total 7.1 g/dL (5.8-8.1); Sodium 136 mmol/L (136-145)
[2024-04-16 10:24] LABS: Troponin I 0.011 ng/mL (< 0.028)
[2024-04-16] MEDS ORDERED: Ondansetron PF 4 MG/2 ML Vial IVP PRN (11:39)
[2024-04-16] MEDS ORDERED: Amiodarone 150 MG/3 ML VIAL ONE (12:13)
[2024-04-16 13:17] LABS: Troponin I Less than 0.010 ng/mL (< 0.028)
[2024-04-16 15:07] VITALS: BMI 19.7
[2024-04-16] MEDS: Amiodarone 150 MG, Admixture Fee 1 EACH in Dextrose 5% in Water 100 ML IVPB SCH (15:31)
[2024-04-16] MEDS: dilTIAZem 125 MG in Sodium Chloride 0.9% 100 ML IVPB SCH (15:50)
[2024-04-16 16:15] LABS: Troponin I Less than 0.010 ng/mL (< 0.028)
[2024-04-16] MEDS: Amiodarone 200 MG TAB PO SCH (20:02)
[2024-04-16] MEDS: Apixaban 2.5 MG TAB PO SCH (20:02)
[2024-04-17] MEDS: Amiodarone 450 MG, Admixture Fee 1 EACH in Dextrose 5% in Water 250 ML IVPB SCH (00:28)
[2024-04-17 05:50] LABS: #Basophils 0.09 10x3/uL (0.0-0.2); %Basophils 1.3 % (0.0-1.0); %Eosinophils 5.7 % (0.0-10.0); %Lymphocytes 19.9 % (21.0-51.0); %Monocytes 8.4 % (0.0-10.0); Hematocrit 40.7 % (36.0-47.0); Hemoglobin 13.8 g/dL (12.0-16.0); Mean Corpuscular HGB CONC 33.9 g/dL (32.0-36.0); Mean Corpuscular Hemoglobin 30.9 pg (27.0-31.0); Mean Corpuscular Volume 91.3 fL (78.0-98.0); Mean Platelet Volume 10.1 fL (7.4-10.4); Platelet Count 465 10x3/uL (130-400); RBC Distribution Width 15.9 % (11.5-14.5); Red Blood Cell (RBC) Count 4.46 mill/uL (4.20-5.40)
[2024-04-17 06:06] LABS: Anion Gap 15 mmol/L (10-20); BUN (Urea Nitrogen) 10 mg/dL (9.8-20.1); Calc. Creatinine Clearance 49 mL/min (70-130); Calcium 9.3 mg/dL (7.8-10.44); Carbon Dioxide 24 mmol/L (23-31); Chloride 103 mmol/L (98-107); Estimated GFR 81; Glucose 108 mg/dL (83-110); Potassium 3.8 mmol/L (3.5-5.1); Sodium 138 mmol/L (136-145)
[2024-04-17 07:46] VITALS: TEMP 97.4
[2024-04-17] MEDS ORDERED: PROPOFOL 20 ML ONE (08:37)
[2024-04-17] MEDS ORDERED: Amiodarone 200 MG TAB PO SCH (09:00)
[2024-04-17] MEDS: Spironolactone 25 MG TAB PO SCH (10:53)
[2024-04-17] MEDS: Furosemide 20 MG TAB PO SCH (10:53)
[2024-04-17] MEDS: Amlodipine 5 MG TAB PO SCH (10:53)
== END 2024-04-17 13:13 | disposition home or self-care (01) | DRG 309 ==
LOC: ERS 08:52 → ERHOLD 11:27 → IMCU/EMU 14:25
PROVIDERS: ADMIT Internal Medicine; ATTEND Internal Medicine
PROC: 5A2204Z Restoration of Cardiac Rhythm, Single (ICD-10-PCS; principal; 2024-04-17)
DX: I48.91 Unspecified atrial fibrillation (principal); I50.32 Chronic diastolic (congestive) heart failure; I11.0 Hypertensive heart disease with heart failure; K21.9 Gastro-esophageal reflux disease without esophagitis; Z79.01 Long term (current) use of anticoagulants; Z88.8 Allergy status to other drugs, medicaments and biological substances; Z79.899 Other long term (current) drug therapy; Z90.49 Acquired absence of other specified parts of digestive tract
CPT/HCPCS: 36415; 36416; 71045; 80048; 80053; 83735; 83880; 84443; 84484; 85025; 92960; 93005; 93010; J0282; J2704; J3490; J7070

== ENCOUNTER 2024-09-19 13:45 | Emergency (ER) | payer OTHER ==
[2024-09-19 15:04] LABS: #Basophils 0.08 10x3/uL (0.0-0.2); %Eosinophils 2.8 % (0.0-10.0); %Lymphocytes 13.2 % (21.0-51.0); %Monocytes 8.1 % (0.0-10.0); %Neutrophils 74.5 % (42.0-75.0); Hematocrit 21.9 % (36.0-47.0); Hemoglobin 6.7 g/dL (12.0-16.0); Mean Corpuscular HGB CONC 30.6 g/dL (32.0-36.0); Mean Corpuscular Hemoglobin 23.3 pg (27.0-31.0); Platelet Count 628 10x3/uL (130-400); RBC Distribution Width 16.4 % (11.5-14.5); Red Blood Cell (RBC) Count 2.88 mill/uL (4.20-5.40)
[2024-09-19 15:23] LABS: ALT (SGPT) 28 U/L (8-55); AST (SGOT) 52 U/L (5-34); Albumin 3.7 g/dL (3.4-4.8); Alkaline Phosphatase 66 U/L (40-110); Anion Gap 15 mmol/L (10-20); BUN (Urea Nitrogen) 17 mg/dL (9.8-20.1); Bilirubin, Total 0.3 mg/dL (0.2-1.2); Calc. Creatinine Clearance 0 mL/min (70-130); Carbon Dioxide 24 mmol/L (23-31); Chloride 98 mmol/L (98-107); Estimated GFR 67; Globulin 3.2 g/dL (2.4-3.5); Glucose 97 mg/dL (83-110); Potassium 5.1 mmol/L (3.5-5.1); Protein, Total 6.9 g/dL (5.8-8.1); Sodium 132 mmol/L (136-145)
[2024-09-19 15:30] LABS: Troponin I Less than 0.010 ng/mL (< 0.028)
== END 2024-09-19 20:42 | disposition home or self-care (01) ==
LOC: ERS 13:45
DX: D50.9 Iron deficiency anemia, unspecified (principal); I10 Essential (primary) hypertension
CPT/HCPCS: 36430; 71045; 80053; 83880; 84484; 85025; 86850; 86900; 86901; 86920; 93005; P9016; 36415

== ENCOUNTER 2025-07-09 10:24 | Outpatient (CLI) | payer OTHER | END 2025-07-09 10:25 | disposition home or self-care (01) | LOC: LABBT 10:24 | PROVIDERS: ATTEND Internal Medicine Cardiovascular Disease | DX: Z01.818 Encounter for other preprocedural examination (principal); I48.0 Paroxysmal atrial fibrillation; Z87.19 Personal history of other diseases of the digestive system | CPT/HCPCS: 93005; 93010 ==

== ENCOUNTER 2025-07-09 10:30 | Inpatient (IN) | payer MEDICARE ==
[2025-07-09 10:55] VITALS: BMI 19.3
[2025-07-09 12:24] LABS: #Basophils 0.13 10x3/uL (0.0-0.2); #Eosinophils 1.12 10x3/uL (0.0-0.7); #Monocytes 0.63 10x3/uL (0.11-0.59); #Neutrophils 5.55 10x3/uL (1.40-6.50); %Basophils 1.5 % (0.0-1.0); %Eosinophils 13.0 % (0.0-10.0); %Lymphocytes 13.0 % (21.0-51.0); %Monocytes 7.3 % (0.0-10.0); %Neutrophils 64.7 % (42.0-75.0); Hematocrit 44.6 % (36.0-47.0); Hemoglobin 14.9 g/dL (12.0-16.0); Mean Corpuscular Hemoglobin 32.1 pg (27.0-31.0); Mean Corpuscular Volume 96.1 fL (78.0-98.0); Platelet Count 621 10x3/uL (130-400); Red Blood Cell (RBC) Count 4.64 mill/uL (4.20-5.40); White Blood Cell (WBC) Count 8.59 10x3/uL (4.8-10.8)
[2025-07-09 12:43] LABS: ALT (SGPT) 29 U/L (Less than 34); AST (SGOT) 42 U/L (11-34); Albumin 4.1 g/dL (3.1-4.5); Alkaline Phosphatase 105 U/L (40-110); Anion Gap 13 mmol/L (10-20); BUN (Urea Nitrogen) 15 mg/dL (9.8-20.1); Bilirubin, Total 0.5 mg/dL (0.3-1.2); Calc. Creatinine Clearance 0 mL/min (70-130); Calcium 9.3 mg/dL (7.8-10.44); Carbon Dioxide 26 mmol/L (23-31); Chloride 97 mmol/L (98-107); Globulin 3.4 g/dL (2.4-3.5); Glucose 94 mg/dL (83-110); Potassium 4.1 mmol/L (3.5-5.1); Sodium 132 mmol/L (136-145)
[2025-07-09 12:51] LABS: INR-International Normal Ratio 1.2; PTT 41.4 sec (22.9-36.1); Prothrombin Time 15.1 sec (12.0-14.7)
[2025-07-15] MEDS ORDERED: CEFAZOLIN 2 GM VIAL ONE (09:05)
[2025-07-15] MEDS ORDERED: Heparin 10,000 UNITS/ 10 ML VIAL ONE (09:05)
[2025-07-15] MEDS ORDERED: Ondansetron PF 4 MG/2 ML Vial ONE (09:20)
[2025-07-15] MEDS ORDERED: Rocuronium Bromide 10 MG/ML (10ML VIAL) ONE (09:21)
[2025-07-15] MEDS ORDERED: PROPOFOL 20 ML ONE (09:21)
[2025-07-15] MEDS ORDERED: Glycopyrrolate 0.2 MG/ML 5 ML SYRINGE ONE (09:43)
[2025-07-15] MEDS ORDERED: PHENYLEPHRINE-NS 100 MCG/ML 10 ML SYRINGE ONE (09:43)
[2025-07-15] MEDS ORDERED: Lidocaine 1% PF 5 ML VIAL ONE (09:43)
[2025-07-15] MEDS ORDERED: Iopamidol 370 76% 100 ML VIAL ONE (10:18)
[2025-07-15] MEDS ORDERED: SUGAMMADEX SODIUM 200 MG/2 ML VIAL ONE ×2 (11:01→11:18)
== END 2025-07-15 15:48 | disposition home or self-care (01) | DRG 274 ==
LOC: SURG A 07-15 07:01 → EDSTATUS 07-15 10:30
PROVIDERS: ADMIT Internal Medicine Cardiovascular Disease; ATTEND Internal Medicine Cardiovascular Disease
PROC: 02L73DK Occlusion of Left Atrial Appendage with Intraluminal Device, Percutaneous Approach (ICD-10-PCS; principal; 2025-07-15)
PROC: B245ZZ4 Ultrasonography of Left Heart, Transesophageal (ICD-10-PCS; 2025-07-15)
DX: I48.0 Paroxysmal atrial fibrillation (principal); Z00.6 Encounter for examination for normal comparison and control in clinical research program; I10 Essential (primary) hypertension; E78.5 Hyperlipidemia, unspecified; Z79.899 Other long term (current) drug therapy; Z90.49 Acquired absence of other specified parts of digestive tract; Z88.8 Allergy status to other drugs, medicaments and biological substances
CPT/HCPCS: 33340; 80053; 85025; 85347; 85610; 85730; 86850; 86900; 86901; 93306; 93355; C1759; C1760; C1817; C1894; J1100; J1644; J2405; J2704; J2720; J3010

== ENCOUNTER 2025-08-13 10:02 | Outpatient (CLI) | payer MEDICARE ==
[2025-08-13 11:55] LABS: #Basophils 0.12 10x3/uL (0.0-0.2); #Eosinophils 1.37 10x3/uL (0.0-0.7); #Monocytes 0.69 10x3/uL (0.11-0.59); #Neutrophils 4.88 10x3/uL (1.40-6.50); %Basophils 1.5 % (0.0-1.0); %Eosinophils 17.1 % (0.0-10.0); %Lymphocytes 11.1 % (21.0-51.0); %Monocytes 8.6 % (0.0-10.0); %Neutrophils 61.1 % (42.0-75.0); Hematocrit 42.5 % (36.0-47.0); Hemoglobin 13.7 g/dL (12.0-16.0); Mean Corpuscular Hemoglobin 31.8 pg (27.0-31.0); Mean Corpuscular Volume 98.6 fL (78.0-98.0); Platelet Count 546 10x3/uL (130-400); Red Blood Cell (RBC) Count 4.31 mill/uL (4.20-5.40); White Blood Cell (WBC) Count 8.00 10x3/uL (4.8-10.8)
[2025-08-13 12:44] LABS: Anion Gap 13 mmol/L (10-20); BUN (Urea Nitrogen) 18 mg/dL (9.8-20.1); Calc. Creatinine Clearance 0 mL/min (70-130); Calcium 9.3 mg/dL (7.8-10.44); Carbon Dioxide 28 mmol/L (23-31); Chloride 100 mmol/L (98-107); Glucose 70 mg/dL (83-110); Potassium 4.2 mmol/L (3.5-5.1); Sodium 137 mmol/L (136-145)
[2025-08-13 12:53] LABS: INR-International Normal Ratio 1.0; PTT 32.3 sec (22.9-36.1); Prothrombin Time 13.6 sec (12.0-14.7)
== END 2025-08-13 10:03 | disposition home or self-care (01) ==
LOC: LABBT 10:02
PROVIDERS: ATTEND Internal Medicine Cardiovascular Disease
DX: Z01.812 Encounter for preprocedural laboratory examination (principal); I48.0 Paroxysmal atrial fibrillation; K92.2 Gastrointestinal hemorrhage, unspecified
CPT/HCPCS: 80048; 85025; 85610; 85730

== ENCOUNTER 2025-09-16 12:16 | Emergency (ER) | payer MEDICARE | END 2025-09-16 14:54 | disposition home or self-care (01) | LOC: ERS 12:16 | DX: S61.211A Laceration without foreign body of left index finger without damage to nail, initial encounter (principal); S61.512A Laceration without foreign body of left wrist, initial encounter; S61.412A Laceration without foreign body of left hand, initial encounter; I48.91 Unspecified atrial fibrillation; I10 Essential (primary) hypertension; Z79.02 Long term (current) use of antithrombotics/antiplatelets; Z79.899 Other long term (current) drug therapy; W25.XXXA Contact with sharp glass, initial encounter | CPT/HCPCS: 12001; 99283 ==

== ENCOUNTER 2025-10-20 08:47 | Outpatient (CLI) | payer MEDICARE | END 2025-10-20 08:48 | disposition home or self-care (01) | LOC: CT 08:47 | PROVIDERS: ATTEND Internal Medicine | DX: M51.14 Intervertebral disc disorders with radiculopathy, thoracic region (principal); R91.8 Other nonspecific abnormal finding of lung field; S22.009A Unspecified fracture of unspecified thoracic vertebra, initial encounter for closed fracture; M41.9 Scoliosis, unspecified; R93.2 Abnormal findings on diagnostic imaging of liver and biliary tract | CPT/HCPCS: 71250; 72072 ==